=== PATIENT | male | born 1985 | race Caucasian/White ===

== ENCOUNTER 2016-12-27 16:28 | Emergency (ER) | payer OTHER ==
[~2016-12-27 16:28] MED LIST: CLIN1CAP6 PO; Z.0.NO CURRENT MEDS
[2016-12-27 16:30] VITALS: BP 130/80; PULSE 122; RESP 24; TEMP 98.1; O2SAT 100
[2016-12-27 16:34] VITALS: PULSE 109
[2016-12-27] MEDS ORDERED: DICL75TA PO ×2 (16:53→16:55)
[2016-12-27] MEDS ORDERED: BACT800T5 PO ×2 (16:53→16:55)
[2016-12-27] MEDS ORDERED: CEPH500C PO ×2 (16:54→16:55)
--- NOTE | 2016-12-27 17:02 | PD ---
HPI Chief Complaint: Lump, Cyst, Hernia Time Seen by Provider: 16:58 Travel History International Travel<30 days: No Contact w/Intl Traveler<30days: No Traveled to known affect area: No History of Present Illness HPI 31-year-old white male presents to emergency department for evaluation of a infection to his right face. He states that he felt as if he had a ingrown or infected hair follicle. He had manipulated and squeezed and picked at his face. He also used a needle a few days ago. Since then it has become increasingly painful and swollen. He denies any fever chills. Does have a history of MRSA in the past. Up-to-date with immunizations. He denies any fever or chills. He does complain of pain. Moderate in intensity. Patient denies alcohol and drugs. He does smoke. PFSH Past Medical History Narrative Medical MRSA, substance abuse Cardiovascular Problems: No Diminished Hearing: No Musculoskeletal: No Neurologic: No Respiratory: No Tetanus Vaccination: < 5 Years Influenza Vaccination: No Past Surgical History Tympanostomy Tube: Yes (CHILD) Other Surgery: Yes (LUE LAC REPAIR, L ABDOMIN REPAIR) Social History Alcohol Use: No (PT DENIES) Tobacco Use: Yes (1 ppd) Substance Use: No Allergies-Medications (Allergen,Severity, Reaction): Coded Allergies: No Known Allergies (Verified , 06/24/16) Reported Meds & Prescriptions Reported Meds & Active Scripts Active Cephalexin 500 Mg Cap 500 Mg PO Q6H Diclofenac Sodium DR (Diclofenac Sodium) 75 Mg Tabdr 75 Mg PO BID Bactrim DS (Sulfamethoxazole-Trimethoprim) 800-160 Mg Tab 1 Tab PO BID Review of Systems Except as stated in HPI: all other systems reviewed are Neg Physical Exam Narrative GENERAL: This is a well-nourished, well-developed patient, in no apparent distress. SKIN: Patient has an area of erythema, all tenderness and induration to the right submandibular region. There is no fluctuance or pointing. This appears to be a reactive edema from being picked and squeezed by the patient. I do not believe that this is a localized abscess at this point. It does appear to be somewhat cellulitic. The area measures approximately 5 x 5 cm. HEAD: Atraumatic. Normocephalic. EYES: PERRL, EOMI, no discharge or injection. No scleral icterus. EARS: Clear NOSE: Nasal turbinates appear normal. THROAT: Mucosa pink and moist. Airway patent. NECK: Trachea midline. supple, moves head freely. LUNGS: Clear to auscultation. CV: Regular in rhythm. ABDOMEN: Soft nontender. EXT: No clubbing cyanosis or edema. Data Data Last Documented VS Vital Signs Date Time Temp Pulse Resp B/P Pulse Ox O2 Delivery O2 Flow Rate FiO2 12/27/16 16:34 109 12/27/16 16:30 98.1 24 130/80 100 Room Air MDM Medical Decision Making Medical Screen Exam Complete: Yes Emergency Medical Condition: Yes Medical Record Reviewed: Yes Differential Diagnosis MDM: High Differential diagnoses: Abscess, folliculitis, cellulitis, lymphangitis, abrasion, contact dermatitis Narrative Course Patient has one percent lidocaine applied topically to the skin. This is right face cellulitis rule out early abscess Diagnosis Primary Impression: right face cellulitis rule out early abscess Patient Instructions: General Instructions Additional Instructions: Rest. Elevation. keep clean and dry. Warm compresses. Daily wound care with soap, water and Neosporin. Do not pick or squeeze her face. Keflex, Bactrim DS, diclofenac Follow-up with a primary care doctor in 3-5 days. Return to the ER for any problems. Med/Other Pt SpecificInfo: Prescription(s) given Scripts Cephalexin 500 Mg Bly071 Mg PO Q6H #28 CAP Ref 0 Prov:James Farrell MD 12/27/[address] 75 Mg Tabdr75 Mg PO BID #20 TAB Prov:James Farrell MD 12/27/16 Sulfamethoxazole-Trimethoprim (Bactrim DS)800-160 Mg Tab1 Tab PO BID #20 TAB Prov:James Farrell MD 12/27/16 Disposition: 01 DISCHARGE HOME Condition: Stable Luis E Hamilton December 27, 2016 17:02
== END 2016-12-27 17:32 | disposition home or self-care (01) ==
LOC: NEPK 16:28
DX: L03.211 Cellulitis of face (principal); F17.200 Nicotine dependence, unspecified, uncomplicated; Z86.14 Personal history of Methicillin resistant Staphylococcus aureus infection
CPT/HCPCS: 99284

== ENCOUNTER 2017-10-20 23:03 | Emergency (ER) | payer SELFPAY ==
[~2017-10-20] VITALS: Ht 175.3 cm; Wt 73.5 kg
[~2017-10-20 23:03] MED LIST changes: +BACT800T5 PO; +CEPH500C PO; -CLIN1CAP6 PO; +DICL75TA PO; -Z.0.NO CURRENT MEDS
[2017-10-20 23:25] VITALS: BP 135/74; PULSE 98; RESP 18; TEMP 98.8; O2SAT 96
--- NOTE | 2017-10-21 01:21 | PD ---
HPI Chief Complaint: Anxiety Time Seen by Provider: 01:18 Travel History International Travel<30 days: No Contact w/Intl Traveler<30days: No Traveled to known affect area: No History of Present Illness HPI 32-year-old male presents to the emergency department by private transportation for complaint of 2 weeks of progressively worsening anxiety shortness of breath carpi pedal spasm and feeling like he is going to pass out have a heart attack or have a stroke. Patient takes no prescription medications. Patient admits to tobacco use and denies alcohol or substance use. Patient does not report diagnosis of anxiety or depression. Patient is not suicidal or homicidal. [facility] Past Medical History Narrative Medical Anxiety; nursing notes reviewed Cardiovascular Problems: No Diminished Hearing: No Musculoskeletal: No Neurologic: No Respiratory: No Past Surgical History Tympanostomy Tube: Yes (CHILD) Other Surgery: Yes (LUE LAC REPAIR, L ABDOMIN REPAIR) Social History Alcohol Use: No (PT DENIES) Tobacco Use: Yes (1 ppd) Substance Use: No Allergies-Medications (Allergen,Severity, Reaction): Coded Allergies: No Known Allergies (Verified Adverse Reaction, Unknown, 10/21/17) Reported Meds & Prescriptions Reported Meds & Active Scripts Active No Active Prescriptions or Reported Medications Review of Systems Except as stated in HPI: all other systems reviewed are Neg Physical Exam Narrative GENERAL: Well-developed well-nourished male no acute distress no respiratory distress SKIN: Warm and dry. HEAD: Atraumatic. Normocephalic. EYES: Pupils equal and round. No scleral icterus. No injection or drainage. ENT: No nasal bleeding or discharge. Mucous membranes pink and moist. NECK: Trachea midline. No JVD. CARDIOVASCULAR: Regular rate and rhythm. RESPIRATORY: No accessory muscle use. Clear to auscultation. Breath sounds equal bilaterally. GASTROINTESTINAL: Abdomen soft, non-tender, nondistended. Hepatic and splenic margins not palpable. MUSCULOSKELETAL: Extremities without clubbing, cyanosis, or edema. No obvious deformities. NEUROLOGICAL: Awake and alert. No obvious cranial nerve deficits. Motor grossly within normal limits. Five out of 5 muscle strength in the arms and legs. Normal speech. PSYCHIATRIC: Appropriate mood and affect; insight and judgment normal. Data Data Last Documented VS Vital Signs Date Time Temp Pulse Resp B/P (MAP) Pulse Ox O2 Delivery O2 Flow Rate FiO2 10/21/17 01:25 68 18 10/20/17 23:25 98.8 135/74 (94) 96 Orders Orders Iv Access Insert/Monitor (10/21/17 01:18) MDM Medical Decision Making Medical Screen Exam Complete: Yes Emergency Medical Condition: Yes Medical Record Reviewed: Yes Differential Diagnosis Anxiety, mood disorder, electrolyte disturbance, arrhythmia, anemia, thyroid dysfunction, ACS Narrative Course Patient on school lunch monitor with pulse oximetry; specimens ordered to be collected and sent for resulting Informed by patient's nurse the patient has eloped from the exam room after refusing to have specimens collected and sent for resulting. Patient left after eloping/AGAINST MEDICAL ADVICE refused evaluation Diagnosis Primary Impression: Left against medical advice Additional Instructions: AMA Scripts No Active Prescriptions or Reported Meds Disposition: 07 AGAINST MEDICAL ADVICE Condition: Stable Mariia Ramesh MD Oct 21, 2017 01:20
== END 2017-10-21 01:48 | disposition left against medical advice (07) ==
LOC: PHED 23:03
DX: R06.02 Shortness of breath (principal); Z53.21 Procedure and treatment not carried out due to patient leaving prior to being seen by health care provider; Z72.0 Tobacco use
CPT/HCPCS: 99281